=== PATIENT | male | born 1970 | race Hispanic/Latino ===

== ENCOUNTER 2018-12-07 09:00 | Inpatient (IN) | payer SELFPAY ==
[2018-12-07] MEDS ORDERED: Midazolam HCl 2 mg/2 ml Vial ONE (09:34)
[2018-12-07] MEDS ORDERED: Fentanyl 100 MCG/2 ML VIAL ONE (09:34)
[2018-12-07 09:44] LABS: ALT (SGPT) 22 U/L (8-55); AST (SGOT) 19 U/L (5-34); Albumin 3.6 g/dL (3.5-5.0); Alkaline Phosphatase 118 U/L (40-150); Anion Gap 13 mmol/L (10-20); BUN (Urea Nitrogen) 21 mg/dL (8.9-20.6); Bilirubin, Total 0.4 mg/dL (0.2-1.2); CK (CPK) 112 U/L (30-200); Calc. Creatinine Clearance 0 mL/min (70-130); Calcium 8.6 mg/dL (7.8-10.44); Carbon Dioxide 22 mmol/L (22-29); Chloride 103 mmol/L (98-107); Estimated GFR-MDRD 82; Globulin 2.7 g/dL (2.4-3.5); Glucose 280 mg/dL (70-105); Potassium 3.8 mmol/L (3.5-5.1); Protein, Total 6.3 g/dL (6.0-8.3); Sodium 134 mmol/L (136-145)
[2018-12-07 09:45] LABS: #Eosinphils 0.3 thou/uL (0.0-0.7); #Lymphocytes 1.2 thou/uL (1.20-3.40); #Monocytes 0.3 thou/uL (0.11-0.59); #Neutrophils 4.4 thou/uL (1.40-6.50); %Basophils 0.1 % (0.0-1.0); %Eosinophils 4.7 % (0.0-10.0); %Lymphocytes 19.3 % (21.0-51.0); %Monocytes 5.1 % (0.0-10.0); %Neutrophils 70.9 % (42.0-75.0); Hemoglobin 13.3 g/dL (14.0-18.0); Mean Corpuscular HGB CONC 34.4 g/dL (32.0-36.0); Mean Corpuscular Hemoglobin 31.8 pg (27.0-31.0); Mean Corpuscular Volume 92.5 fL (78.0-98.0); Mean Platelet Volume 9.1 fL (7.4-10.4); Platelet Count 134 thou/uL (130-400); RBC Distribution Width 11.7 % (11.5-14.5); Red Blood Cell (RBC) Count 4.18 mill/uL (4.70-6.10); White Blood Cell (WBC) Count 6.2 thou/uL (4.8-10.8)
--- NOTE | 2018-12-07 09:48 | RAD ---
PORTABLE CHEST ONE VIEW: 12/07/2018 9:08 a.m. HISTORY: Chest pain. Myocardial infarction. FINDINGS: The heart size is normal. The lungs are expanded without focal areas of consolidation, pneumothorace s, or pleural effusions. IMPRESSION: No radiographic evidence of acute cardiopulmonary process. POS: [facility]
[2018-12-07 09:51] LABS: Prothrombin Time 12.9 SEC (12.0-14.7)
[2018-12-07] MEDS ORDERED: Heparin 10,000 UNITS/1 ML VIAL ONE (09:56)
[2018-12-07 10:02] LABS: PTT 119.8 SEC (22.9-36.1)
[2018-12-07] MEDS ORDERED: Sodium Chloride 0.9% 200 ML IV PRN (10:11)
[2018-12-07] MEDS ORDERED: Acetaminophen/Codeine 30-300mg Tablet PO PRN ×2 (10:11)
[2018-12-07] MEDS ORDERED: Nitroglycerin 0.4 MG TAB (25 Tab Bottle) SL PRN (10:11)
[2018-12-07] MEDS ORDERED: Aspirin 325 mg Enteric Coated Tablet PO SCH (10:30)
[2018-12-07] MEDS ORDERED: Nitroglycerin 2% Ointment 1 INCH/1 GM Packet TOP SCH ×2 (10:30→21:00)
[2018-12-07] MEDS ORDERED: Heparin 25,000 units/D5W 500 ML IV SCH (10:45)
[2018-12-07] MEDS ORDERED: Diazepam 5 MG TAB PO PRN (10:53)
[2018-12-07] MEDS ORDERED: Communication Order-Pharmacy FS ONE (10:53)
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
[2018-12-07 11:35] LABS: Hemoglobin A1c 13.1 % (4.0-6.0)
[2018-12-07 11:53] LABS: PTT Greater than 250.0 SEC (22.9-36.1)
--- NOTE | 2018-12-07 12:04 | CON ---
DATE OF CONSULTATION: 12/07/2018 HISTORY OF PRESENT ILLNESS: I was called at cardiac cath technician to evaluate the patient undergoing cardiac catheterization by Dr. Segovia. He presented through the Emergency Department with chest pain. The chest pain has been present for a number of days. On presentation, his chest pain had been relieved with nitroglycerin, heparin, and aspirin. He was taken to the cardiac cath technician urgently and underwent cardiac catheterization. He has a PDA branch that has critical stenosis at its origin. He has a long segment LAD with 80% and 90% lesions in it. He also has an OM that has 80+% lesion in it. The ventriculogram shows an ejection fraction of approximately 50%. I have been asked to see him, discuss coronary artery bypass grafting. PAST MEDICAL HISTORY: Diabetes mellitus. PAST SURGICAL HISTORY: None. CURRENT MEDICATIONS: Lantus 30 units subcu at bedtime - he also takes sliding scale regular insulin. He does not check his blood sugars at home. ALLERGIES: NONE. SOCIAL HISTORY: He smokes approximately a pack of cigarettes a day. He works in construction. He is and accompanied by his . REVIEW OF SYSTEMS: A 10-point review of systems is performed is negative except as above. PHYSICAL EXAMINATION: GENERAL: This is a well-developed, well-nourished man, resting comfortably in bed. VITAL SIGNS: His heart rate is 73 and in sinus and blood pressure is 136/67. Height is approximately 6 feet and weight is approximately 170 pounds. HEENT: Sclerae nonicteric. Pupils are equal and round bilaterally. NECK: Supple without carotid bruit. There is no adenopathy. CHEST: Clear bilaterally. HEART: Rhythm is regular without murmur. ABDOMEN: Soft and nontender. EXTREMITIES: No edema. VASCULAR: He has palpable carotid, radial, femoral, and dorsalis pedis pulses bilaterally. VENOUS: There is no venous varicosities or venous stasis changes. LYMPHATICS: No lymphedema or lymphadenopathy. PSYCHIATRIC: Awake and oriented to person, place, and time. He is Kittitian-speaking only, and I have spoken with him, both with my limited Kittitian and also through his , who speaks fluent Thai and Kittitian. LABORATORY DATA: His creatinine is 0.98 and potassium is 3.8. Hemoglobin is 13.3 and platelet count is 134,000. Hemoglobin A1c is pending. Chest x-ray shows well expanded lungs with minimal cardiomegaly. ASSESSMENT AND PLAN: This is a very pleasant 48-year-old gentleman with acute coronary syndrome and severe three-vessel disease on cardiac catheterization. Left ventricular ejection fraction is mildly depressed at 50%. The risks, benefits, and options to coronary artery bypass grafting have been discussed in detail with the patient. He is agreeable to proceed tomorrow with coronary artery bypass grafting. Potential targets included LAD, OM, and PDA branch. Job ID: [id number]
[2018-12-07] MEDS: Sodium Chloride 0.9% 1,000 ML IV SCH ×2 (12:06→20:07)
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
[2018-12-07 14:33] LABS: Troponin I 8.154 ng/mL (< 0.028)
[2018-12-07] MEDS ORDERED: Iopamidol 370 76% 50 ML VIAL FS ONE (14:58)
[2018-12-07] MEDS ORDERED: Iopamidol 370 76% 100 ML VIAL ONE (14:58)
[2018-12-07] MEDS ORDERED: Dextrose 5% in Water 1,000 ML IV PRN (15:57)
[2018-12-07] MEDS ORDERED: Dextrose 50% Abboject 50 ML SYRINGE SLOW IVP PRN (15:57)
[2018-12-07] MEDS: HumaLOG 300 UNITS/3 ML VIAL SC PRN (17:01)
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
[2018-12-07] MEDS: Metoprolol Tartrate 25 MG TAB PO SCH (20:07)
[2018-12-07] MEDS ORDERED: Insulin Glargine 15 UNITS in Pre-Filled Syringe 1 EACH SC SCH (21:00)
[2018-12-07] MEDS: Heparin 10,000 UNITS/ 10 ML VIAL SLOW IVP SCH (21:02)
[2018-12-07 21:10] LABS: Troponin I 20.829 ng/mL (< 0.028)
[2018-12-08 02:44] LABS: Critical Call Chem Troponin I RESULT DECREASING; Troponin I 15.863 ng/mL (< 0.028)
[2018-12-08 03:02] LABS: #Basophils 0.1 thou/uL (0.0-0.2); #Eosinphils 0.3 thou/uL (0.0-0.7); #Lymphocytes 1.7 thou/uL (1.20-3.40); #Monocytes 0.4 thou/uL (0.11-0.59); #Neutrophils 4.9 thou/uL (1.40-6.50); %Basophils 0.7 % (0.0-1.0); %Eosinophils 4.6 % (0.0-10.0); %Lymphocytes 22.4 % (21.0-51.0); %Monocytes 5.8 % (0.0-10.0); %Neutrophils 66.5 % (42.0-75.0); Hemoglobin 11.9 g/dL (14.0-18.0); Mean Corpuscular HGB CONC 35.9 g/dL (32.0-36.0); Mean Corpuscular Hemoglobin 32.7 pg (27.0-31.0); Mean Platelet Volume 8.7 fL (7.4-10.4); Platelet Count 121 thou/uL (130-400); RBC Distribution Width 11.6 % (11.5-14.5); Red Blood Cell (RBC) Count 3.65 mill/uL (4.70-6.10); White Blood Cell (WBC) Count 7.4 thou/uL (4.8-10.8)
[2018-12-08 03:28] LABS: Anion Gap 10 mmol/L (10-20); BUN (Urea Nitrogen) 10 mg/dL (8.9-20.6); Calc. Creatinine Clearance 113 mL/min (70-130); Calcium 8.2 mg/dL (7.8-10.44); Carbon Dioxide 22 mmol/L (22-29); Cardiac Risk 4.1 (Less than 4.5); Chloride 105 mmol/L (98-107); Cholesterol 146 mg/dl (< 200 Desired); Estimated GFR-MDRD Greater than 90; Glucose 223 mg/dL (70-105); HDL Cholesterol 36 mg/dL (>60 Neg Risk); LDL Cholesterol, Calculated 96 mg/dL; Sodium 133 mmol/L (136-145); Triglycerides 72 mg/dL (Less than 150)
[2018-12-08] MEDS: Heparin 10,000 UNITS/ 10 ML VIAL SLOW IVP SCH (03:52)
[2018-12-08] MEDS: Sodium Chloride 0.9% 1,000 ML IV SCH (03:56)
[2018-12-08] MEDS: HumaLOG 300 UNITS/3 ML VIAL SC PRN (05:31)
[2018-12-08] MEDS: Metoprolol Tartrate 25 MG TAB PO SCH (05:31)
[2018-12-08] MEDS ORDERED: CEFAZOLIN 2 GM in Premix Bag 1 BAG IVPB SCH (06:00)
[2018-12-08] MEDS ORDERED: HumaLOG 300 UNITS/3 ML VIAL SC PRN (07:19)
[2018-12-08] MEDS ORDERED: Aspirin 325 mg Enteric Coated Tablet PO SCH (09:00)
[2018-12-08] MEDS ORDERED: Nicotine 21 MG PATCH TD SCH (09:00)
[2018-12-08] MEDS ORDERED: Dexamethasone 4 mg/ml Vial ONE (09:50)
[2018-12-08] MEDS ORDERED: Bupivacaine HCl 0.5%/Epinephrine 1:200,000/PF 30 ml Vial ONE (09:50)
[2018-12-08] MEDS ORDERED: Albumin 5% 500 ML ONE (09:51)
[2018-12-08] MEDS ORDERED: Dextrose 50% Abboject 50 ML SYRINGE ONE (10:05)
[2018-12-08] MEDS ORDERED: CEFAZOLIN 1 GM VIAL SLOW IVP SCH (11:00)
[2018-12-08] MEDS ORDERED: Heparin 10,000 UNITS/1 ML VIAL 30,000 UNITS, Admixture Fee 1 EACH in Sodium Chloride 0.... IVPB SCH (11:00)
--- NOTE | 2018-12-08 11:41 | PRG ---
DATE OF SERVICE: 12/08/2018 SERVICE: Pulmonary Medicine. INTERVAL HISTORY: The patient is doing fine from Respiratory standpoint. Breathing comfortably. Denies any current chest pain, shortness of breath, nausea, or vomiting. He is breathing comfortably. Overnight, there were no events. He is going down for coronary artery bypass graft today. PHYSICAL EXAMINATION: VITAL SIGNS: Afebrile, pulse 72, blood pressure 106/64, respirations 16, saturation 97% on room air. GENERAL: The patient is awake and alert, in no apparent distress. LUNGS: Excellent air entry. No prolonged expiratory phase, wheezing, or crackles are appreciated. HEART: Normal rate and regular. ABDOMEN: Soft, nontender, nondistended. Bowel sounds are positive. MUSCULOSKELETAL: No cyanosis or clubbing. No pitting in the bilateral lower extremities. NEUROLOGIC: Grossly nonfocal. LABORATORY DATA: Hemoglobin 11.9. CBC is otherwise unremarkable. PTT is 62.5 and within our range. Blood sugar dropped to 57, but is now up-trending. Basic metabolic profile is otherwise unremarkable. Troponin has peaked at 20 and is now downtrending to 15. ASSESSMENT: 1. Acute ST-elevation myocardial infarction. 2. Coronary artery disease, three-vessel. 3. Type 2 diabetes mellitus. DISCUSSION AND PLAN: The patient is going for coronary artery bypass graft today. Pulmonary will continue to follow along in this location. From a purely Respiratory standpoint, he is certainly optimized for proceeding with the procedure. Job ID: [id number]
[2018-12-08] MEDS ORDERED: Midazolam HCl 2 mg/2 ml Vial ONE (12:11)
[2018-12-08] MEDS ORDERED: Nitroglycerin 50 MG/250 ML BOT 250 ML ONE (12:11)
[2018-12-08] MEDS ORDERED: Fentanyl 250 MCG/5 ML VIAL ONE (12:11)
[2018-12-08] MEDS ORDERED: Norepinephrine 4 MG/4 ML VIAL ONE (12:12)
[2018-12-08] MEDS ORDERED: Mannitol 12.5 GM/50 ML ONE (12:51)
[2018-12-08] MEDS ORDERED: Protamine Sulfate 250 MG/25 ML VIAL ONE (12:51)
[2018-12-08] MEDS ORDERED: Magnesium 5 GM/10 ML VIAL ONE (12:51)
[2018-12-08] MEDS ORDERED: Cardioplegic Soln 1,000 ML BAG ONE (12:51)
[2018-12-08] MEDS ORDERED: Rocuronium Bromide 10 MG/ML (10ML VIAL) ONE (12:51)
[2018-12-08] MEDS ORDERED: Papaverine 60 MG/2 ML VIAL ONE (12:51)
[2018-12-08] MEDS ORDERED: Thrombin 5000 UNITS/5 ML VIAL ONE (12:51)
[2018-12-08] MEDS ORDERED: Calcium Chloride 1 GM/10 ML Abboject SYRINGE ONE (12:51)
[2018-12-08] MEDS ORDERED: Succinylcholine Chloride 20 MG/ML 10 ml SYRINGE FS ONE (12:51)
[2018-12-08] MEDS ORDERED: Ondansetron PF 4 MG/2 ML Vial ONE (12:51)
[2018-12-08] MEDS ORDERED: Lidocaine 2% PF 100 mg/5 ml Syringe ONE (12:51)
[2018-12-08] MEDS ORDERED: Aminocaproic Acid 5 GM/20 ML VIAL ONE (12:51)
[2018-12-08] MEDS ORDERED: Vecuronium 10 MG VIAL ONE (12:51)
[2018-12-08] MEDS ORDERED: PROPOFOL 200 MG/20 ML VIAL ONE (12:51)
[2018-12-08] MEDS ORDERED: Heparin 30,000 units/30 ml VIAL ONE (12:51)
[2018-12-08] MEDS ORDERED: Sodium Bicarb 50 MEQ/50 ML VIAL ONE (12:51)
[2018-12-08] MEDS ORDERED: Heparin 5,000 UNITS/ML VIAL ONE (12:51)
[2018-12-08] MEDS ORDERED: Potassium Chloride 60 MEQ/30 ML VIAL ONE (12:51)
[2018-12-08] MEDS ORDERED: ceFAZolin Sodium (SDC) 2 GM/100 ML BAG ONE (12:57)
[2018-12-08] MEDS ORDERED: Insulin Regular 300 UNITS/3 ML VIAL ONE (14:25)
[2018-12-08] MEDS ORDERED: Phenylephrine HCL 10 MG/ML VIAL ONE (15:00)
[2018-12-08] MEDS ORDERED: Midazolam HCl 5 mg/5 ml Vial ONE (15:07)
[2018-12-08] MEDS ORDERED: Prevnar 13-Val Conj/PF 0.5 ML SYRINGE IM ONE (16:00)
[2018-12-08] MEDS ORDERED: Acetaminophen 325 MG TAB PO PRN (16:45)
[2018-12-08] MEDS ORDERED: Potassium Chloride 20 MEQ/100 ML PREMIX BAG IVPB PRN (16:45)
[2018-12-08] MEDS ORDERED: Guaifenesin DM 100-10/5 ML UDCUP PO PRN (16:45)
[2018-12-08] MEDS ORDERED: Morphine 2 MG/ML SYRINGE SLOW IVP PRN (16:45)
[2018-12-08] MEDS ORDERED: Mag-Al 1200 mg/1200 mg/30 ML UDCUP PO PRN (16:45)
[2018-12-08] MEDS ORDERED: Nitroglycerin 50 MG/250 ML BOT 250 ML IVPB PRN (16:45)
[2018-12-08] MEDS ORDERED: Fentanyl 100 MCG/2 ML VIAL SLOW IVP PRN ×2 (16:45)
[2018-12-08] MEDS ORDERED: Magnesium 2 GM/50 ML 2 GM in Premix Bag 1 BAG IVPB SCH (16:45)
[2018-12-08] MEDS ORDERED: D5 1/2 NS w/20 mEq KCL 1,000 ML IV SCH (16:45)
[2018-12-08] MEDS ORDERED: Bisacodyl 5 MG TAB PO PRN (16:45)
[2018-12-08] MEDS ORDERED: Hetastarch 6% 500 ML 500 ML IVPB PRN (16:45)
[2018-12-08] MEDS ORDERED: Phenylephrine 10 MG/NS 250 ML 250 ML IVPB PRN (16:45)
[2018-12-08] MEDS ORDERED: hydrALAZINE 20 MG/ML VIAL SLOW IVP PRN (16:45)
[2018-12-08] MEDS ORDERED: Bisacodyl 10 MG SUPP PR PRN (16:45)
[2018-12-08] MEDS ORDERED: HYDROcodone/Acetaminophen 5/325 mg Tablet PO PRN (16:45)
[2018-12-08] MEDS ORDERED: Post-Op Insulin Drip Protocol IVPB ONE (16:45)
[2018-12-08] MEDS ORDERED: HUMULIN R 100 UNITS in Sodium Chloride 0.9% 100 ML IVPB SCH (17:03)
[2018-12-08] MEDS ORDERED: Dextrose 5% in Water 1,000 ML IV PRN (17:03)
[2018-12-08] MEDS ORDERED: Dextrose 50% Abboject 50 ML SYRINGE SLOW IVP PRN (17:03)
[2018-12-08] MEDS ORDERED: Insulin Regular 300 UNITS/3 ML VIAL SC PRN (17:03)
--- NOTE | 2018-12-08 17:09 | RAD ---
Frontal radiograph chest: 12/08/2018 COMPARISON: 12/07/2018 HISTORY: Status post open heart surgery FINDINGS: There is an endotracheal tube projecting over the tracheal air column just below the level of the clavicular heads. There is a right subclavian central venous catheter with the distal tip overlying the region of the p roximal right atrium. Midline sternotomy wires are present. Postsurgical drainage catheters overlie the mediastinum and left hilar region. There is small volume pneumomediastinum on the left. Supine imaging is provided, limiting assessment for pneumothorax and pleural fluid. No focal consolidation or evidence of pulmonary edema. There are postoperative clips projecting over the medial aspect of the left upper quadrant of the abd omen IMPRESSION: Postoperative changes as detailed above. Short-term follow-up imaging advised.
[2018-12-08 17:12] LABS: #Eosinphils 0.2 thou/uL (0.0-0.7); #Lymphocytes 1.3 thou/uL (1.20-3.40); #Monocytes 0.3 thou/uL (0.11-0.59); #Neutrophils 9.6 thou/uL (1.40-6.50); %Basophils 0.3 % (0.0-1.0); %Eosinophils 1.7 % (0.0-10.0); %Lymphocytes 11.7 % (21.0-51.0); %Monocytes 2.8 % (0.0-10.0); %Neutrophils 83.5 % (42.0-75.0); Hemoglobin 13.1 g/dL (14.0-18.0); Mean Corpuscular HGB CONC 33.7 g/dL (32.0-36.0); Mean Corpuscular Hemoglobin 30.7 pg (27.0-31.0); Mean Corpuscular Volume 91.1 fL (78.0-98.0); Mean Platelet Volume 8.9 fL (7.4-10.4); Platelet Count 108 thou/uL (130-400); RBC Distribution Width 11.7 % (11.5-14.5); Red Blood Cell (RBC) Count 4.28 mill/uL (4.70-6.10); White Blood Cell (WBC) Count 11.5 thou/uL (4.8-10.8)
[2018-12-08 17:21] LABS: INR-International Normal Ratio 1.1; PTT 32.5 SEC (22.9-36.1); Prothrombin Time 14.2 SEC (12.0-14.7)
[2018-12-08] MEDS: Ondansetron PF 4 MG/2 ML Vial IVP PRN (17:25)
[2018-12-08] MEDS: Ketorolac Tromethamine 30 MG/ML VIAL IVP SCH ×2 (17:25→23:56)
[2018-12-08 17:26] LABS: Actual Bicarbonate (HCO3a) 20.6 mEq/L (22-28); CO2 Tension 32.6 mmHg (35.0-45.0); Hemoglobin (Hb) 13.4 g/dL (14.0-18.0); O2 Tension (PaO2) 150.5 mmHg (80.0-100.0); Potassium - ABG Lab 3.46 mmol/L (3.70-5.30); pH, Arterial 7.42 (7.35-7.45)
[2018-12-08 17:27] LABS: Puncture Site ALINE
[2018-12-08 17:30] LABS: Anion Gap 12 mmol/L (10-20); BUN (Urea Nitrogen) 9 mg/dL (8.9-20.6); Calc. Creatinine Clearance 115 mL/min (70-130); Calcium 7.7 mg/dL (7.8-10.44); Carbon Dioxide 18 mmol/L (22-29); Chloride 109 mmol/L (98-107); Estimated GFR-MDRD Greater than 90; Glucose 116 mg/dL (70-105); Potassium 3.6 mmol/L (3.5-5.1); Sodium 135 mmol/L (136-145)
[2018-12-08] MEDS: Potassium Chloride 20 MEQ in Premix Bag 1 BAG IVPB PRN (17:40)
--- NOTE | 2018-12-08 18:09 | OP ---
DATE OF PROCEDURE: 12/08/2018 PREOPERATIVE DIAGNOSES: Coronary artery disease/status post non-ST elevation myocardial infarction/uncontrolled diabetes mellitus. POSTOPERATIVE DIAGNOSES: Coronary artery disease/status post non-ST elevation myocardial infarction/uncontrolled diabetes mellitus. PROCEDURES PERFORMED: 1. Coronary artery bypass grafting x3. 2. Left internal mammary artery to 2.0 mm left anterior descending artery-good conduit target. 3. Reverse saphenous vein to 1.5 mm posterior descending artery-good conduit target. 4. Reverse saphenous vein, 2.0 mm obtuse margin-good conduit target. SIDEHAND: Karlo Rose MD ANESTHESIA: General endotracheal-Dr. Clarence Swenson and Dr. Janene Do. PUMP TIME: 52 minutes. CROSS-CLAMP TIME: 32 minutes. LOW CORE TEMPERATURE: 34-degree Celsius. MOBILITY ARCHITECT MANAGER: Elaine Stein. DRAINS: 24-Niuean chest tubes x2. DRIPS: None. TRANSFUSIONS: None. DESCRIPTION OF PROCEDURE: After consent was obtained, the patient was brought to the operating room, placed in supine position on the operating room table. Appropriate central line and monitors were placed and general endotracheal anesthesia was induced. Chest and legs were prepped and draped in usual sterile fashion. Greater saphenous vein was harvested from the left lower extremity utilizing an endoscopic technique. Wound was closed in layers. Median sternotomy was performed. Left internal mammary artery was harvested as a pedicle graft. The patient was systemically heparinized. Distal pedicle was divided and infused with papaverine. Thymic fat and pericardium were divided with electrocautery. Pericardial stay sutures were placed. Aortic and atrial cannulation were performed. After adequate heparinization, retrograde prime was performed. The patient was placed on cardiopulmonary bypass. Distal targets were marked. Aortic cross-clamp was applied. The antegrade sanguineous cardioplegic arrest was obtained. 1 L of antegrade [place] cardioplegia was given. Topical cold solution was used. Reverse saphenous vein was anastomosed to the PDA in end-to-side fashion running 7-0 Prolene suture. Anastomosis was tested and was hemostatic. Reverse saphenous vein was anastomosed to the OM in end-to-side fashion with running 7-0 Prolene suture. Anastomosis was tested and was hemostatic. Mammary artery was brought through a window in the pericardium and anastomosed to the LAD in an end-to-side fashion with running 7-0 Prolene suture. On release of mammary clamps, there was good hooding of anastomosis and good distal flow. Pedicle was secured with interrupted 6-0 Prolene suture. Cross-clamp was removed and partial occluding clamp placed. Saphenous veins were anastomosed to individual punch sites on the aorta with running 6-0 Prolene suture. Partial-occluding clamp was removed and graft deaired. Anastomoses were inspected for hemostasis, which was good. The patient was warmed and weaned from cardiopulmonary bypass. After resumption of sinus rhythm, good hemodynamics, temperature greater than 36.5, bypass was discontinued. Transfusion was given. Protamine was administered. Decannulation was performed, and pursestring suture was secured. 24-Niuean chest tubes x2 were placed in the mediastinum and secured with silk suture. After adequate hemostasis had been obtained in the mediastinum, sternum was treated with vancomycin paste and closed with #7 wire. Sternum was treated with platelet-rich plasma and wires were twisted and buried. Wounds were irrigated with platelet poor plasma and closed in multiple layers. Dermabond applied to the skin. The patient tolerated the procedure well, was transferred to the intensive care unit in stable, but critical condition. Needle, sponge, and instrument counts were all reported as correct at the end of the procedure. Job ID: [id number]
[2018-12-08 20:12] LABS: Actual Bicarbonate (HCO3a) 16.7 mEq/L (22-28); Base Excess (BEa) -6.3 mEq/L (-2.0 to +3.0); CO2 Tension 26.7 mmHg (35.0-45.0); Calcium, Ionized 1.11 mmol/L (1.12-1.30); Carboxyhemoglobin (COHb) 0.8 gm% (0.0-3.0); Hemoglobin (Hb) 12.7 g/dL (14.0-18.0); O2 Tension (PaO2) 177.1 mmHg (80.0-100.0); Potassium - ABG Lab 3.96 mmol/L (3.70-5.30); pH, Arterial 7.42 (7.35-7.45)
[2018-12-08] MEDS: Famotidine/PF 20 mg/2ml Vial SLOW IVP SCH (21:06)
[2018-12-08] MEDS: CEFAZOLIN 2 GM in Premix Bag 1 BAG IVPB SCH (21:06)
[2018-12-08 21:22] LABS: ALV-art Gradient 74.725 (0-20)
--- NOTE | 2018-12-08 22:06 | PDOC.HOSPP ---
- Subjective Subjective: intubated. Awake. Slightly sedated. - Objective Vital Signs & Weight: Vital Signs (12 hours) Temp Pulse Resp BP Pulse Ox 12/08/18 20:20 98 12/08/18 20:00 25 H 12/08/18 19:55 85 17 99 12/08/18 18:00 96.8 F L 17 12/08/18 17:11 28 H 100 12/08/18 17:00 96.1 F L 12/08/18 16:46 91 101/52 L 12/08/18 12:00 98.9 F Weight Admit Weight 155 lb Weight 155 lb 13.869 oz Most Recent Monitor Data Heart Rate from ECG 86 NIBP 99/62 NIBP BP-Mean 74 Respiration from ECG 19 SpO2 98 I&O: 12/07/18 12/08/18 12/09/18 06:59 06:59 06:59 Intake Total 3692 750 Output Total 1750 1420 Balance 1942 -670 Result Diagrams: 12/08/18 17:04 12/08/18 17:04 Additional Labs: Accuchecks 12/08/18 12/08/18 12/08/18 20:47 17:04 15:52 POC Glucose 250 H 113 H 102 12/08/18 12/08/18 12/08/18 15:19 14:52 14:18 POC Glucose 130 H 145 H 145 H 12/08/18 12/08/18 12/08/18 13:26 11:58 10:23 POC Glucose 121 H 97 69 L 12/08/18 12/08/18 12/08/18 10:02 07:13 05:33 POC Glucose 57 L* 158 H 310 H ROS - Medication Medications: Active Medications Generic Name Dose Route Start Last Admin Trade Name Freq PRN Reason Stop Dose Admin Albumin Human 12.5 gm 12/08/18 16:45 12/08/18 17:54 Albumin 5% IVPB 12/09/18 16:46 12.5 gm Q6H PRN Administration To Maintain SBP> 90 mmHG Albuterol/Ipratropium 3 ml 12/08/18 19:00 12/08/18 19:55 Duoneb NEB 3 ml [id number] VENKAT Administration Famotidine 20 mg 12/08/18 21:00 12/08/18 21:06 Pepcid SLOW IVP 20 mg Q12HR VENKAT Administration Cefazolin Sodium/Dextrose 2 gm 50 mls @ 100 mls/hr 12/08/18 21:00 12/08/18 21 :06 / Device IVPB 12/09/18 13:29 50 mls 0500,1300,2100 VENKAT Administration Potassium Chloride/Dextrose/Sod Cl 1,000 mls @ 40 mls/hr 12/08/18 16:45 12/08 17:32 D5 1/2 Ns W/20 Meq Kcl IV 1,000 mls .Q24H VENKAT Administration Hetastarch/Sodium Chloride 500 mls @ 0 mls/hr 12/08/18 16:45 12/08/18 20:59 Hespan IVPB 12/09/18 16:26 500 mls PRN PRN Administration To Maintain SBP > 90mmHg As Directed Insulin Human Regular 100 101 mls @ 0 mls/hr 12/08/18 17:03 12/08/18 21:06 units/ Sodium Chloride IVPB 101 mls INF VENKAT Administration Protocol As Directed Potassium Chloride 20 meq/ 100 mls @ 50 mls/hr 12/08/18 17:09 12/08/18 17:40 Device IVPB 100 mls PRN PRN Administration K </= 4.0 Ketorolac Tromethamine 30 mg 12/08/18 18:00 12/08/18 17:25 Toradol IVP 12/11/18 18:01 30 mg Q6HR VENKAT Administration Ondansetron HCl 4 mg 12/08/18 16:45 12/08/18 17:25 Zofran IVP 4 mg Q6H PRN Administration Nausea/Vomiting Sodium Chloride 10 ml 12/08/18 21:00 12/08/18 21:10 Flush - Normal Saline IVF 10 ml Q12HR VENKAT Administration - Exam General - other findings: Intubated Heart: RRR, no murmur, no gallops, no rubs, normal peripheral pulses Respiratory: CTAB, no wheezes, no rales, no ronchi, normal chest expansion, no tachypnea, normal percussion Gastrointestinal: soft, non-tender, non-distended, normal bowel sounds, no palpable masses, no hepatomegaly, no splenomegaly, no bruit Skin: normal turgor, no lesions, no rashes Neurological: CN's grossly intact, normal sensation to touch, no weakness, no focal deficits, no new deficit Hosp A/P (1) CAD (coronary artery disease) Code(s): I25.10 - ATHSCL HEART DISEASE OF [place] CORONARY ARTERY W/O ANG PCTRS Status: Acute (2) S/P CABG (coronary artery bypass graft) Code(s): Z95.1 - PRESENCE OF AORTOCORONARY BYPASS GRAFT Status: Acute (3) Diabetes mellitus Code(s): E11.9 - TYPE 2 DIABETES MELLITUS WITHOUT COMPLICATIONS Status: Acute - Plan Post-op. Intubated. Doing well. He will likely be extubated this afternoon. Continue ASA.
[2018-12-08 23:02] LABS: Hemoglobin 10.8 g/dL (14.0-18.0)
[2018-12-08 23:14] LABS: Potassium 3.9 mmol/L (3.5-5.1)
[2018-12-09] MEDS: Potassium Chloride 20 MEQ in Premix Bag 1 BAG IVPB PRN (00:13)
[2018-12-09 04:16] LABS: #Lymphocytes 0.9 thou/uL (1.20-3.40); #Monocytes 0.8 thou/uL (0.11-0.59); #Neutrophils 7.2 thou/uL (1.40-6.50); %Eosinophils 0.1 % (0.0-10.0); %Monocytes 9.3 % (0.0-10.0); %Neutrophils 80.6 % (42.0-75.0); Hemoglobin 10.8 g/dL (14.0-18.0); Mean Corpuscular HGB CONC 34.6 g/dL (32.0-36.0); Mean Corpuscular Hemoglobin 32.1 pg (27.0-31.0); Mean Corpuscular Volume 92.8 fL (78.0-98.0); Mean Platelet Volume 9.2 fL (7.4-10.4); Platelet Count 90 thou/uL (130-400); RBC Distribution Width 11.8 % (11.5-14.5); Red Blood Cell (RBC) Count 3.36 mill/uL (4.70-6.10); White Blood Cell (WBC) Count 8.9 thou/uL (4.8-10.8)
[2018-12-09 04:31] LABS: Anion Gap 9 mmol/L (10-20); BUN (Urea Nitrogen) 14 mg/dL (8.9-20.6); Calc. Creatinine Clearance 117 mL/min (70-130); Calcium 7.8 mg/dL (7.8-10.44); Carbon Dioxide 21 mmol/L (22-29); Chloride 111 mmol/L (98-107); Estimated GFR-MDRD Greater than 90; Glucose 88 mg/dL (70-105); Potassium 4.4 mmol/L (3.5-5.1); Sodium 137 mmol/L (136-145)
[2018-12-09] MEDS: CEFAZOLIN 2 GM in Premix Bag 1 BAG IVPB SCH ×2 (05:17→12:39)
[2018-12-09] MEDS: Ondansetron PF 4 MG/2 ML Vial IVP PRN (05:17)
[2018-12-09] MEDS: Ketorolac Tromethamine 30 MG/ML VIAL IVP SCH ×4 (06:17→23:31)
[2018-12-09] MEDS ORDERED: Dextrose 5% in Water 1,000 ML IV PRN (07:17)
[2018-12-09] MEDS ORDERED: Dextrose 50% Abboject 50 ML SYRINGE SLOW IVP PRN (07:17)
[2018-12-09] MEDS ORDERED: Insulin Glargine 14 UNITS in Pre-Filled Syringe 1 EACH SC SCH (08:15)
--- NOTE | 2018-12-09 08:21 | RAD ---
XR Chest 1 View Portable History: Post open heart surgery Comparison: Radiograph prior day Findings: The mediastinum is improving. Patient has Gated. Central venous catheter is similar. No pneumothorax. Atelectatic changes in the lung bases. Mediastinal drains are similar. Impression: Interval extubation and improving pneumomediastinum.
[2018-12-09] MEDS: Aspirin 325 MG TAB PO SCH (09:03)
[2018-12-09] MEDS: Magnesium 2 GM/50 ML 2 GM in Premix Bag 1 BAG IVPB SCH (09:04)
[2018-12-09] MEDS: Famotidine/PF 20 mg/2ml Vial SLOW IVP SCH ×2 (09:04→20:25)
[2018-12-09 10:12] LABS: Analyzer IN Cardio OR; Base Excess (BEa) -4.6 mEq/L (-2.0 to +3.0); Calcium, Ionized 1.04 mmol/L (1.12-1.30); Carboxyhemoglobin (COHb) 0.2 gm% (0.0-3.0); Hemoglobin (Hb) 10.7 g/dL (14.0-18.0); O2 Tension (PaO2) 424.3 mmHg (80.0-100.0); Potassium - ABG Lab 3.89 mmol/L (3.70-5.30); pH, Arterial 7.46 (7.35-7.45)
[2018-12-09 10:12] LABS: Analyzer IN Cardio OR; Base Excess (BEa) -1.2 mEq/L (-2.0 to +3.0); CO2 Tension 32.3 mmHg (35.0-45.0); Calcium, Ionized 1.03 mmol/L (1.12-1.30); Carboxyhemoglobin (COHb) 0.5 gm% (0.0-3.0); Hemoglobin (Hb) 11.8 g/dL (14.0-18.0); Potassium - ABG Lab 4.15 mmol/L (3.70-5.30); pH, Arterial 7.45 (7.35-7.45)
[2018-12-09 10:12] LABS: Actual Bicarbonate (HCO3a) 22.7 mEq/L (22-28); Analyzer IN Cardio OR; Base Excess (BEa) 0.1 mEq/L (-2.0 to +3.0); CO2 Tension 29.8 mmHg (35.0-45.0); Calcium, Ionized 1.01 mmol/L (1.12-1.30); Carboxyhemoglobin (COHb) 0.3 gm% (0.0-3.0); Hemoglobin (Hb) 10.1 g/dL (14.0-18.0); O2 Tension (PaO2) 479.2 mmHg (80.0-100.0); Potassium - ABG Lab 4.86 mmol/L (3.70-5.30)
[2018-12-09 10:13] LABS: Actual Bicarbonate (HCO3a) 23.8 mEq/L (22-28); Analyzer IN Cardio OR; Base Excess (BEa) -0.7 mEq/L (-2.0 to +3.0); CO2 Tension 38.7 mmHg (35.0-45.0); Calcium, Ionized 1.01 mmol/L (1.12-1.30); Carboxyhemoglobin (COHb) 0.2 gm% (0.0-3.0); Hemoglobin (Hb) 9.2 g/dL (14.0-18.0); O2 Tension (PaO2) 412.7 mmHg (80.0-100.0); pH, Arterial 7.41 (7.35-7.45)
[2018-12-09 10:13] LABS: Actual Bicarbonate (HCO3a) 22.3 mEq/L (22-28); Analyzer IN Cardio OR; Base Excess (BEa) -1.2 mEq/L (-2.0 to +3.0); CO2 Tension 32.8 mmHg (35.0-45.0); Calcium, Ionized 1.01 mmol/L (1.12-1.30); Carboxyhemoglobin (COHb) 0.3 gm% (0.0-3.0); Hemoglobin (Hb) 9.6 g/dL (14.0-18.0); Potassium - ABG Lab 3.71 mmol/L (3.70-5.30); pH, Arterial 7.45 (7.35-7.45)
[2018-12-09 10:14] LABS: CO2 Tension 25.9 mmHg (35.0-45.0); Puncture Site ALINE
[2018-12-09 10:15] LABS: Puncture Site ALINE
[2018-12-09 10:16] LABS: O2 Tension (PaO2) 552.3 mmHg (80.0-100.0); Puncture Site ALINE
[2018-12-09 10:16] LABS: Puncture Site ALINE
[2018-12-09 10:16] LABS: Puncture Site ALINE
[2018-12-09] MEDS: HumaLOG 300 UNITS/3 ML VIAL SC PRN ×3 (11:34→20:23)
--- NOTE | 2018-12-09 12:33 | PDOC.HOSPP ---
- Subjective Encounter Date: 12/09/18 Encounter Time: 11:30 Subjective: Patient seen and examined in ICU. Extubated, fairly comfortable. No nausea or vomiting, no SOB. Family at bedside. - Objective Vital Signs & Weight: Vital Signs (12 hours) Temp Pulse Resp Pulse Ox 12/09/18 08:00 99 12/09/18 07:39 99 12/09/18 07:37 95 12 99 12/09/18 07:00 98.9 F Weight Admit Weight 155 lb Weight 156 lb 11.979 oz Most Recent Monitor Data Heart Rate from ECG 95 NIBP 112/68 NIBP BP-Mean 82 Respiration from ECG 18 SpO2 97 I&O: 12/08/18 12/09/18 12/10/18 06:59 06:59 06:59 Intake Total 3692 2131.9 183.9 Output Total 1750 2105 320 Balance 1942 26.9 -136.1 Result Diagrams: 12/09/18 03:45 12/09/18 03:45 Additional Labs: Accuchecks 12/09/18 12/09/18 12/09/18 10:40 07:17 06:11 POC Glucose 156 H 111 H 128 H 12/09/18 12/09/18 12/09/18 05:16 03:55 03:02 POC Glucose 132 H 86 70 12/09/18 12/09/18 12/09/18 02:04 00:58 00:02 POC Glucose 99 116 H 191 H 12/08/18 12/08/18 12/08/18 23:07 22:10 20:47 POC Glucose 216 H 254 H 250 H 12/08/18 12/08/18 12/08/18 17:04 15:52 15:19 POC Glucose 113 H 102 130 H 12/08/18 12/08/18 12/08/18 14:52 14:18 13:26 POC Glucose 145 H 145 H 121 H ROS - Medication Medications: Active Medications Generic Name Dose Route Start Last Admin Trade Name Freq PRN Reason Stop Dose Admin Albumin Human 12.5 gm 12/08/18 16:45 12/09/18 01:32 Albumin 5% IVPB 12/09/18 16:46 12.5 gm Q6H PRN Administration To Maintain SBP> 90 mmHG Albuterol/Ipratropium 3 ml 12/08/18 19:00 12/09/18 07:37 Duoneb NEB 3 ml [id number] VENKAT Administration Aspirin 325 mg 12/09/18 09:00 12/09/18 09:03 Aspirin PO 325 mg DAILY VENKAT Administration Famotidine 20 mg 12/08/18 21:00 12/09/18 09:04 Pepcid SLOW IVP 20 mg Q12HR VENKAT Administration Fentanyl 25 mcg 12/08/18 16:45 12/09/18 03:57 Sublimaze SLOW IVP 12/10/18 16:26 25 mcg Q2H PRN Administration Moderate Pain (4-6) Cefazolin Sodium/Dextrose 2 gm 50 mls @ 100 mls/hr 12/08/18 21:00 12/09/18 05 :17 / Device IVPB 12/09/18 13:29 50 mls 0500,1300,2100 VENKAT Administration Hetastarch/Sodium Chloride 500 mls @ 0 mls/hr 12/08/18 16:45 12/08/18 20:59 Hespan IVPB 12/09/18 16:26 500 mls PRN PRN Administration To Maintain SBP > 90mmHg As Directed Magnesium Sulfate 2 gm/ Device 50 mls @ 50 mls/hr 12/09/18 09:00 12/09/18 09: 04 IVPB 12/10/18 09:59 50 mls QAM VENKAT Administration Potassium Chloride 20 meq/ 100 mls @ 50 mls/hr 12/08/18 17:09 12/09/18 00:13 Device IVPB 100 mls PRN PRN Administration K </= 4.0 Insulin Human Lispro 0 units 12/09/18 07:17 12/09/18 11:34 Humalog SC 2 unit .MILD SLIDING SCALE PRN Administration Mild Correctional Scale Ketorolac Tromethamine 30 mg 12/08/18 18:00 12/09/18 11:33 Toradol IVP 12/11/18 18:01 30 mg Q6HR VENKAT Administration Ondansetron HCl 4 mg 12/08/18 16:45 12/09/18 05:17 Zofran IVP 4 mg Q6H PRN Administration Nausea/Vomiting Sodium Chloride 10 ml 12/08/18 21:00 12/09/18 09:05 Flush - Normal Saline IVF 10 ml Q12HR VENKAT Administration - Exam General - other findings: Fairly comfortable Eye: anicteric sclera ENT: moist mucosa Neck: supple, no lymphadenopathy Heart: RRR Respiratory - other findings: Slight basilar crackles Gastrointestinal: soft, non-tender, non-distended Extremities: no edema Neurological: no focal deficits Psychiatric: A&O x 3 Hosp A/P (1) CAD (coronary artery disease) Code(s): I25.10 - ATHSCL HEART DISEASE OF [place] CORONARY ARTERY W/O ANG PCTRS Status: Acute (2) Diabetes mellitus Code(s): E11.9 - TYPE 2 DIABETES MELLITUS WITHOUT COMPLICATIONS Status: Acute (3) S/P CABG (coronary artery bypass graft) Code(s): Z95.1 - PRESENCE OF AORTOCORONARY BYPASS GRAFT Status: Acute (4) Postoperative anemia due to acute blood loss Code(s): D62 - ACUTE POSTHEMORRHAGIC ANEMIA Status: Acute (5) Tobacco dependence Code(s): F17.200 - NICOTINE DEPENDENCE, UNSPECIFIED, UNCOMPLICATED Status: Acute - Plan 1. Cards - POD #1 s/p CABG; ASA/statin, beta marj as able. Ambulate/OOB/ mobilize 2. Endo - DM type 1 - 15u long acting ordered/ss noted, follow 3. Tobacco cessation Generally doing well with postop recovery
--- NOTE | 2018-12-09 16:54 | PRG ---
DATE OF SERVICE: 12/09/2018 SERVICE: Pulmonary Medicine. INTERVAL HISTORY: The patient is doing really well from respiratory standpoint. He tolerated his procedure very well yesterday. He has no specific complaints of nausea or vomiting. He is currently resting comfortably. He has no complaints of shortness of breath. PHYSICAL EXAMINATION: VITAL SIGNS: Afebrile, pulse 89, blood pressure 87/51, respirations 21, and saturation 95% on room air. GENERAL: The patient is awake and alert, in no apparent distress. LUNGS: Decent air entry without any prolonged expiratory phase or wheezing present. HEART: Normal rate. Regular. ABDOMEN: Soft, nontender, and nondistended. Bowel sounds are positive. MUSCULOSKELETAL: No cyanosis or clubbing. There is no pitting in the bilateral lower extremities. NEUROLOGIC: Grossly nonfocal. LABORATORY AND DIAGNOSTIC DATA: WBC 8.9, hemoglobin 10.8, and platelets 90,000. INR 1.1. PH 7.42, pCO2 of 27, and pO2 of 177. Basic metabolic profile is otherwise unremarkable. Chloride 111 and sodium 137. Chest x-ray demonstrates median sternotomy wires are in place. There is a right subclavian central venous catheter terminates in beautiful position. There is a left chest tube and mediastinal drain, which are in place. I do not appreciate any pleural effusions or overt consolidating lesions in the bilateral lung wilkes. ASSESSMENT: 1. Acute ST-elevation myocardial infarction. 2. Coronary artery disease, status post coronary artery bypass graft x3 vessels. 3. Type 2 diabetes mellitus. DISCUSSION AND PLAN: The patient is doing beautifully in the postoperative period. He has already been weaned down to room air. We will begin our mobilization efforts through time. Hopefully, he will transition out of the ICU today or tomorrow. I will continue to follow in this location, but when he leaves the ICU, I will sign off. Please call with additional questions or concerns through time. Job ID: [id number]
[2018-12-09] MEDS: Atorvastatin Calcium 40 MG TAB PO SCH (20:25)
[2018-12-09] MEDS: Insulin Glargine 15 UNITS in Pre-Filled Syringe 1 EACH SC SCH (20:29)
[2018-12-10] MEDS: Ketorolac Tromethamine 30 MG/ML VIAL IVP SCH ×4 (06:07→23:50)
--- NOTE | 2018-12-10 07:49 | PDOC.HOSPP ---
- Subjective Encounter Date: 12/10/18 Encounter Time: 07:47 Subjective: Slept well, no acute overnight events. No new lab work, HD stable, plans for galvez discontinuation and tele transfer. Pain "tolerable" on current regimen. No nausea or vomiting. - Objective Vital Signs & Weight: Vital Signs (12 hours) Temp Pulse Resp Pulse Ox 12/10/18 04:00 98.9 F 12/10/18 00:00 99.0 F 12/09/18 23:16 95 16 94 L 12/09/18 20:00 99.3 F Weight Admit Weight 155 lb Weight 160 lb 11.472 oz Most Recent Monitor Data Heart Rate from ECG 96 NIBP 107/65 NIBP BP-Mean 79 Respiration from ECG 22 SpO2 96 I&O: 12/09/18 12/10/18 12/11/18 06:59 06:59 06:59 Intake Total 2131.9 1863.9 Output Total 2105 1300 Balance 26.9 563.9 Result Diagrams: 12/09/18 03:45 12/09/18 03:45 Additional Labs: Accuchecks 12/10/18 12/09/18 12/09/18 06:03 20:25 16:55 POC Glucose 124 H 213 H 207 H 12/09/18 10:40 POC Glucose 156 H ROS - Medication Medications: Active Medications Generic Name Dose Route Start Last Admin Trade Name Freq PRN Reason Stop Dose Admin Albuterol/Ipratropium 3 ml 12/08/18 19:00 12/09/18 23:16 Duoneb NEB 3 ml [id number] VENKAT Administration Aspirin 325 mg 12/09/18 09:00 12/09/18 09:03 Aspirin PO 325 mg DAILY VENKAT Administration Atorvastatin Calcium 40 mg 12/09/18 21:00 12/09/18 20:25 Lipitor PO 40 mg HS VENKAT Administration Famotidine 20 mg 12/08/18 21:00 12/09/18 20:25 Pepcid SLOW IVP 20 mg Q12HR VENKAT Administration Fentanyl 25 mcg 12/08/18 16:45 12/09/18 03:57 Sublimaze SLOW IVP 12/10/18 16:26 25 mcg Q2H PRN Administration Moderate Pain (4-6) Magnesium Sulfate 2 gm/ Device 50 mls @ 50 mls/hr 12/09/18 09:00 12/09/18 09: 04 IVPB 12/10/18 09:59 50 mls QAM VENKAT Administration Potassium Chloride 20 meq/ 100 mls @ 50 mls/hr 12/08/18 17:09 12/09/18 00:13 Device IVPB 100 mls PRN PRN Administration K </= 4.0 Insulin Glargine 15 units/ 0.15 mls @ 0 mls/hr 12/09/18 21:00 12/09/18 20:29 Miscellaneous Medication SC 0.15 mls HS VENKAT Administration Insulin Human Lispro 0 units 12/09/18 07:17 12/09/18 20:23 Humalog SC 3 unit .MILD SLIDING SCALE PRN Administration Mild Correctional Scale Ketorolac Tromethamine 30 mg 12/08/18 18:00 12/10/18 06:07 Toradol IVP 12/11/18 18:01 30 mg Q6HR VENKAT Administration Ondansetron HCl 4 mg 12/08/18 16:45 12/09/18 05:17 Zofran IVP 4 mg Q6H PRN Administration Nausea/Vomiting Sodium Chloride 10 ml 12/08/18 21:00 12/09/18 20:33 Flush - Normal Saline IVF 10 ml Q12HR VENKAT Administration - Exam NAD Eye: PERRL ENT: moist mucosa Neck: supple, no lymphadenopathy Heart: RRR Respiratory: CTAB Respiratory - other findings: Decreased bs bases Gastrointestinal: soft, non-tender, non-distended Neurological: no focal deficits Psychiatric: normal affect, A&O x 3 Hosp A/P (1) CAD (coronary artery disease) Code(s): I25.10 - ATHSCL HEART DISEASE OF [place] CORONARY ARTERY W/O ANG PCTRS Status: Acute (2) Diabetes mellitus Code(s): E11.9 - TYPE 2 DIABETES MELLITUS WITHOUT COMPLICATIONS Status: Acute (3) S/P CABG (coronary artery bypass graft) Code(s): Z95.1 - PRESENCE OF AORTOCORONARY BYPASS GRAFT Status: Acute (4) Postoperative anemia due to acute blood loss Code(s): D62 - ACUTE POSTHEMORRHAGIC ANEMIA Status: Acute (5) Tobacco dependence Code(s): F17.200 - NICOTINE DEPENDENCE, UNSPECIFIED, UNCOMPLICATED Status: Acute - Plan plan discussed w/ family, incentive spirometry, out of bed/ambulate, dc galvez 1. Cards - POD #2 s/p CABG; ASA/statin, beta marj as able. Ambulate/OOB/ mobilize 2. Endo - DM on insulin at home - 15u long acting ordered qhs/ss noted. At home , on metformin as well, restart at low dose. 3. Tobacco cessation Generally doing well with postop recovery; to tele today as per [facility].
--- NOTE | 2018-12-10 08:27 | RAD ---
PORTABLE AP CHEST X-RAY: HISTORY: Post open heart surgery. COMPARISON: 12/09/2018 FINDINGS: The left-sided thoracostomy tube, mediastinal drains, and right subclavian central venous catheter re main in place and unchanged in position. Post surgical changes related to CABG are again noted. The cardiac silhouette is magnified by projection. There is mild atelectasis present at the left lung b ase. The lungs otherwise appear clear. No pneumothorax is seen. There is a questionable tiny left pleural effusion present. No other interval change. IMPRESSION: 1. Stable postoperative changes related to coronary artery bypass grafting, with lines and tubes unc hanged in position. 2. Mild atelectasis, left lung base, with question of tiny left pleural effusion. POS: [facility]
[2018-12-10] MEDS: Magnesium 2 GM/50 ML 2 GM in Premix Bag 1 BAG IVPB SCH (09:05)
[2018-12-10] MEDS: Aspirin 325 MG TAB PO SCH (09:06)
[2018-12-10] MEDS: Famotidine/PF 20 mg/2ml Vial SLOW IVP SCH (09:06)
[2018-12-10] MEDS: metFORMIN 500 MG TAB PO SCH ×2 (09:06→17:05)
[2018-12-10] MEDS ORDERED: Bisacodyl 10 MG SUPP PR PRN (11:01)
[2018-12-10] MEDS ORDERED: Artificial Tears 18 DROP/0.9 ML EA EYE PRN (11:01)
[2018-12-10] MEDS ORDERED: Guaifenesin DM 100-10/5 ML UDCUP PO PRN (11:01)
[2018-12-10] MEDS ORDERED: diphenhydrAMINE 25 MG CAP PO PRN (11:01)
[2018-12-10] MEDS ORDERED: Mag-Al 1200 mg/1200 mg/30 ML UDCUP PO PRN (11:01)
[2018-12-10] MEDS ORDERED: Zolpidem Tartrate 5 MG TAB PO PRN (11:01)
[2018-12-10] MEDS ORDERED: Nitroglycerin 0.4 MG TAB (25 Tab Bottle) SL PRN (11:01)
[2018-12-10] MEDS ORDERED: Bisacodyl 5 MG TAB PO PRN (11:01)
[2018-12-10] MEDS ORDERED: Mineral Oil ENEMA PR PRN (11:01)
[2018-12-10] MEDS: HumaLOG 300 UNITS/3 ML VIAL SC PRN ×2 (12:06→17:06)
--- NOTE | 2018-12-10 14:29 | PRG ---
DATE OF SERVICE: 12/10/2018 SERVICE: Pulmonary Medicine. INTERVAL HISTORY: The patient is breathing comfortably. He remains on room air. He denies having any chest pain. He has a little bit of cough, but not bringing up any phlegm. Otherwise, there has been no interval change to his condition. PHYSICAL EXAMINATION: VITAL SIGNS: Afebrile, pulse 94, blood pressure 141/77, respirations 17, and saturation 96% on room air. GENERAL: The patient is awake and alert, in no apparent distress. LUNGS: Very good air entry. No prolonged expiratory phase or wheezing is present. HEART: Normal rate, regular. ABDOMEN: Soft, nontender, and nondistended. Bowel sounds are positive. MUSCULOSKELETAL: No cyanosis or clubbing. There is trace pitting in bilateral lower extremities. NEUROLOGIC: Grossly nonfocal. LABORATORY DATA: WBC 8.9, hemoglobin 10.8, platelets 90,000 and gently downtrending. INR 1.1. IMAGING DATA: Chest x-ray demonstrates mediastinal and left-sided thoracostomy tubes are in place. Right subclavian central venous catheter is in good position. Cardiac silhouette is essentially normal. I do not see any obvious large effusions or infiltrates. ASSESSMENT: 1. Acute ST elevation myocardial infarction. 2. Coronary artery disease, status post coronary artery bypass graft x3 vessels. 3. Type 2 diabetes mellitus. DISCUSSION AND PLAN: The patient is doing wonderful at this point. I think it would be reasonable for us to transition him out of the ICU to the telemetry unit. When he arrives on the floor, he will have no further requirements for inpatient Pulmonary/Critical Care opinion, and I will sign off. Please call with additional questions or concerns through time. IV fluids will be interrupted as the patient's p.o. was adequate. Job ID: [id number]
[2018-12-10] MEDS: Famotidine 20 MG TAB PO SCH (21:28)
[2018-12-10] MEDS: Carvedilol 3.125 MG TAB PO SCH (21:30)
[2018-12-10] MEDS: Insulin Glargine 15 UNITS in Pre-Filled Syringe 1 EACH SC SCH (21:30)
[2018-12-10] MEDS: Atorvastatin Calcium 40 MG TAB PO SCH (21:30)
[2018-12-10] MEDS: HYDROcodone/Acetaminophen 5/325 mg Tablet PO PRN (21:32)
[2018-12-11] MEDS: Ketorolac Tromethamine 30 MG/ML VIAL IVP SCH ×3 (06:14→18:07)
[2018-12-11] MEDS ORDERED: Aspirin 325 mg Enteric Coated Tablet PO SCH (09:00)
[2018-12-11] MEDS: Carvedilol 3.125 MG TAB PO SCH ×2 (09:03→20:42)
[2018-12-11] MEDS: metFORMIN 500 MG TAB PO SCH ×2 (09:04→18:07)
[2018-12-11] MEDS: Aspirin 325 MG TAB PO SCH (09:04)
[2018-12-11] MEDS: Lisinopril 5 MG TAB PO SCH (09:04)
[2018-12-11] MEDS: Famotidine 20 MG TAB PO SCH ×2 (10:08→20:43)
[2018-12-11 11:06] VITALS: BMI 23.8
[2018-12-11] MEDS: HumaLOG 300 UNITS/3 ML VIAL SC PRN (13:55)
--- NOTE | 2018-12-11 19:00 | PDOC.HOSPP ---
- Subjective Encounter Date: 12/11/18 Encounter Time: 11:15 Subjective: Up/walking/doing well. Pain controlled. States at home uses Levemir 25u qhs; does not use short acting - Objective Vital Signs & Weight: Vital Signs (12 hours) Temp Pulse Pulse Pulse Resp BP BP 12/11/18 16:02 98.0 F 89 16 12/11/18 13:52 97 12 12/11/18 13:21 98.8 F 88 16 12/11/18 11:24 93 94 117/66 120/75 12/11/18 09:20 97 95 125/67 117/66 12/11/18 08:58 98.5 F 94 15 12/11/18 08:00 BP BP Pulse Ox Pulse Ox Pulse Ox 12/11/18 16:02 115/74 94 L 12/11/18 13:52 12/11/18 13:21 126/74 97 12/11/18 11:24 97 96 12/11/18 09:20 98 96 12/11/18 08:58 107/61 96 12/11/18 08:00 96 Weight Admit Weight 155 lb 13.869 oz Weight 152 lb 3.2 oz Most Recent Monitor Data Heart Rate from ECG 99 NIBP 121/75 NIBP BP-Mean 90 Respiration from ECG 30 SpO2 97 I&O: 12/10/18 12/11/18 12/12/18 06:59 06:59 06:59 Intake Total 1863.9 676 Output Total 1300 70 Balance 563.9 606 Result Diagrams: 12/09/18 03:45 12/09/18 03:45 Additional Labs: Accuchecks 12/11/18 12/11/18 12/11/18 17:22 11:21 05:46 POC Glucose 105 299 H 211 H 12/10/18 20:42 POC Glucose 244 H ROS - Medication Medications: Active Medications Generic Name Dose Route Start Last Admin Trade Name Freq PRN Reason Stop Dose Admin Hydrocodone Bitart/Acetaminophen 2 tab 12/08/18 16:45 12/10/18 21:32 [place] 5/325 PO 2 tab Q4H PRN Administration Severe Pain (7-10) Albuterol/Ipratropium 3 ml 12/08/18 19:00 12/11/18 13:52 Duoneb NEB 3 ml [id number] VENKAT Administration Aspirin 325 mg 12/09/18 09:00 12/11/18 09:04 Aspirin PO 325 mg DAILY VENKAT Administration Atorvastatin Calcium 40 mg 12/09/18 21:00 12/10/18 21:30 Lipitor PO 40 mg HS VENKAT Administration Carvedilol 3.125 mg 12/10/18 21:00 12/11/18 09:03 Coreg PO 3.125 mg BID VENKAT Administration Famotidine 20 mg 12/10/18 21:00 12/11/18 10:08 Pepcid PO Not Given Q12HR VENKAT Potassium Chloride 20 meq/ 100 mls @ 50 mls/hr 12/08/18 17:09 12/09/18 00:13 Device IVPB 100 mls PRN PRN Administration K </= 4.0 Insulin Glargine 15 units/ 0.15 mls @ 0 mls/hr 12/09/18 21:00 12/10/18 21:30 Miscellaneous Medication SC 0.15 mls HS VENKAT Administration Insulin Human Lispro 0 units 12/09/18 07:17 12/11/18 13:55 Humalog SC 4 unit .MILD SLIDING SCALE PRN Administration Mild Correctional Scale Lisinopril 2.5 mg 12/11/18 09:00 12/11/18 09:04 Zestril PO 2.5 mg DAILY VENKAT Administration Metformin HCl 500 mg 12/10/18 08:00 12/11/18 18:07 Glucophage PO 500 mg BID-WM VENKAT Administration Ondansetron HCl 4 mg 12/08/18 16:45 12/09/18 05:17 Zofran IVP 4 mg Q6H PRN Administration Nausea/Vomiting Sodium Chloride 10 ml 12/08/18 21:00 12/11/18 09:05 Flush - Normal Saline IVF 10 ml Q12HR VENKAT Administration - Exam awake alert Eye: PERRL ENT: moist mucosa Neck: supple, no lymphadenopathy Heart: RRR Heart - other findings: Incision clean/dry/intact Respiratory: CTAB Gastrointestinal: soft, non-tender Extremities: no edema Neurological: no focal deficits Psychiatric: A&O x 3 Hosp A/P (1) CAD (coronary artery disease) Code(s): I25.10 - ATHSCL HEART DISEASE OF [place] CORONARY ARTERY W/O ANG PCTRS Status: Acute (2) Diabetes mellitus Code(s): E11.9 - TYPE 2 DIABETES MELLITUS WITHOUT COMPLICATIONS Status: Acute (3) S/P CABG (coronary artery bypass graft) Code(s): Z95.1 - PRESENCE OF AORTOCORONARY BYPASS GRAFT Status: Acute (4) Postoperative anemia due to acute blood loss Code(s): D62 - ACUTE POSTHEMORRHAGIC ANEMIA Status: Acute (5) Tobacco dependence Code(s): F17.200 - NICOTINE DEPENDENCE, UNSPECIFIED, UNCOMPLICATED Status: Acute - Plan plan discussed w/ family, incentive spirometry, out of bed/ambulate, jenniffer galvez 1. Cards - POD #3 s/p CABG; ASA/statin, beta marj. Ambulate/OOB/mobilize 2. Endo - DM on insulin at home 25u; with diet his blood glucose has increased substantially, titrate insulin. At home, on metformin as well, restart at low dose. 3. Tobacco cessation Generally doing very well with postop recovery
[2018-12-11] MEDS: Atorvastatin Calcium 40 MG TAB PO SCH (20:42)
[2018-12-11] MEDS: HYDROcodone/Acetaminophen 5/325 mg Tablet PO PRN (20:43)
[2018-12-11] MEDS ORDERED: Insulin Glargine 25 UNITS in Pre-Filled Syringe 1 EACH SC SCH (21:00)
[2018-12-12] MEDS: Ondansetron PF 4 MG/2 ML Vial IVP PRN (03:51)
[2018-12-12] MEDS: Aspirin 325 MG TAB PO SCH (09:03)
[2018-12-12] MEDS: Carvedilol 3.125 MG TAB PO SCH (09:04)
[2018-12-12] MEDS: Famotidine 20 MG TAB PO SCH (09:04)
[2018-12-12] MEDS: Lisinopril 5 MG TAB PO SCH (09:04)
[2018-12-12] MEDS: metFORMIN 500 MG TAB PO SCH (09:05)
[2018-12-12 12:37] VITALS: BP 114/72; TEMP 98.2
--- NOTE | 2018-12-13 04:25 | DIS ---
DATE OF ADMISSION: 12/07/2018 DATE OF DISCHARGE: 12/12/2018 DISCHARGE DIAGNOSES: 1. Coronary artery disease. 2. Diabetes mellitus. 3. Hypertension. PROCEDURES PERFORMED: 1. Cardiac catheterization. 2. Coronary artery bypass grafting x3. 3. Left internal mammary artery to LAD. 4. Reverse saphenous vein to PDA. 5. Reverse saphenous vein to obtuse marginal. DESCRIPTION OF HOSPITAL STAY: Mr. Hebert presented through the emergency department with chest pain. He was appropriately evaluated and underwent cardiac catheterization by Dr. Segoiva. He was subsequently referred for coronary artery bypass grafting. He has done well postoperatively. He has had no rhythm disturbances. At the time of discharge, he is ambulatory, tolerating a regular diet, having good bowel and bladder function. Incisions are clean and dry without any evidence of infection. DISCHARGE MEDICATIONS: Include: 1. Aspirin 325 mg daily. 2. Lipitor 40 mg at bedtime. 3. Coreg 3.125 mg b.i.d. 4. Lisinopril 2.5 mg daily. 5. Metformin 500 mg b.i.d. 6. Lantus 30 units at bedtime. 7. Proscar 5 mg at bedtime. 8. Flomax 0.4 mg daily. FOLLOWUP: Follow up is with me in 2 weeks. Job ID: [id number]
== END 2018-12-12 13:55 | disposition home or self-care (01) | DRG 234 ==
LOC: ERS 09:00 → CCU 10:07 → 2NO 12-10 10:43
PROVIDERS: ADMIT Internal Medicine Cardiovascular Disease; ATTEND Internal Medicine Cardiovascular Disease
PROC: 4A023N7 Measurement of Cardiac Sampling and Pressure, Left Heart, Percutaneous Approach (ICD-10-PCS; 2018-12-07)
PROC: B2111ZZ Fluoroscopy of Multiple Coronary Arteries using Low Osmolar Contrast (ICD-10-PCS; 2018-12-07)
PROC: B2151ZZ Fluoroscopy of Left Heart using Low Osmolar Contrast (ICD-10-PCS; 2018-12-07)
PROC: 02100Z9 Bypass Coronary Artery, One Artery from Left Internal Mammary, Open Approach (ICD-10-PCS; principal; 2018-12-08)
PROC: 021109W Bypass Coronary Artery, Two Arteries from Aorta with Autologous Venous Tissue, Open Approach (ICD-10-PCS; 2018-12-08)
PROC: 06BQ4ZZ Excision of Left Saphenous Vein, Percutaneous Endoscopic Approach (ICD-10-PCS; 2018-12-08)
PROC: 5A1221Z Performance of Cardiac Output, Continuous (ICD-10-PCS; 2018-12-08)
DX: I21.4 Non-ST elevation (NSTEMI) myocardial infarction (principal); D62 Acute posthemorrhagic anemia; E87.1 Hypo-osmolality and hyponatremia; I25.10 Atherosclerotic heart disease of native coronary artery without angina pectoris; E11.9 Type 2 diabetes mellitus without complications; I10 Essential (primary) hypertension; F17.210 Nicotine dependence, cigarettes, uncomplicated; E78.00 Pure hypercholesterolemia, unspecified; Z79.4 Long term (current) use of insulin
CPT/HCPCS: 36415; 36416; 36430; 71045; 80048; 80061; 82553; 82805; 83036; 84484; 85025; 85347; 85610; 85730; 86850; 86900; 86901; 93005; 93010; 93458; 93798; 94002; 94150; 94640; 96374; 99152; 99153; C1769; C1887; J0670; J0690; J1100; J1644; J1815; J1885; J2001; J2150; J2250; J2370; J2405; J2440; J2704; J2720; J3010; J3370; J3475; J3480; J3490; J7050; J7620; P9045; Q9967; S0017; S0028

== ENCOUNTER 2018-12-20 10:09 | Emergency (ER) | payer SELFPAY ==
[2018-12-20 10:39] LABS: #Eosinphils 0.4 thou/uL (0.0-0.7); #Lymphocytes 1.2 thou/uL (1.20-3.40); #Monocytes 0.5 thou/uL (0.11-0.59); %Basophils 0.3 % (0.0-1.0); %Eosinophils 4.7 % (0.0-10.0); %Lymphocytes 13.2 % (21.0-51.0); %Monocytes 5.3 % (0.0-10.0); %Neutrophils 76.4 % (42.0-75.0); Hemoglobin 11.3 g/dL (14.0-18.0); Mean Corpuscular Hemoglobin 32.1 pg (27.0-31.0); Mean Corpuscular Volume 94.3 fL (78.0-98.0); Mean Platelet Volume 7.4 fL (7.4-10.4); Platelet Count 376 thou/uL (130-400); RBC Distribution Width 12.2 % (11.5-14.5); Red Blood Cell (RBC) Count 3.51 mill/uL (4.70-6.10); White Blood Cell (WBC) Count 9.1 thou/uL (4.8-10.8)
--- NOTE | 2018-12-20 10:55 | RAD ---
Portable chest radiograph: 12/20/2018 COMPARISON: 12/10/2018 HISTORY: Chest pain FINDINGS: Mild linear density in the left lung base with mild blunting of the left costophrenic angle noted. Midline sternotomy wires are present. There is mild increased linear interstitial density within both lungs. There is no pneumothorax, lobar consolidation, or alveolar edema. IMPRESSION: Mild linear density in the left base with blunting of left costophrenic angle may signify scar or postoperative change. No focal consolidation or alveolar edema.
[2018-12-20 11:00] LABS: ALT (SGPT) 23 U/L (8-55); AST (SGOT) 21 U/L (5-34); Albumin 3.5 g/dL (3.5-5.0); Alkaline Phosphatase 112 U/L (40-150); Anion Gap 12 mmol/L (10-20); BUN (Urea Nitrogen) 21 mg/dL (8.9-20.6); Bilirubin, Total 0.3 mg/dL (0.2-1.2); CK (CPK) 58 U/L (30-200); Calc. Creatinine Clearance 0 mL/min (70-130); Carbon Dioxide 27 mmol/L (22-29); Chloride 98 mmol/L (98-107); Estimated GFR-MDRD 80; Glucose 287 mg/dL (70-105); Protein, Total 6.5 g/dL (6.0-8.3); Sodium 132 mmol/L (136-145)
--- NOTE | 2018-12-20 11:51 | CT ---
Exam: CT angiogram chest with 3-D rendering: HISTORY: Chest pain Recent coronary artery bypass grafting surgery FINDINGS: Bilateral pleural effusions somewhat larger on the right side with some pleural-based parenchymal robert nges bilaterally. Evidence for bilateral vascular congestion. Evidence for some minimal mediastinal blood and congestion from prior recent surgery. Trace pericardial fluid. Several minimally enlarged l ymph nodes in the superior left mediastinum up to 1.0 cm in short axis. There is no convincing evidence for acute pulmonary embolism. IMPRESSION: No convincing evidence for acute pulmonary embolism. Postoperative coronary bypass changes. Small bilateral pleural effusions and pulmonary parenchymal changes. Other findings as above.
[2018-12-20] MEDS ORDERED: ISOVUE-370 76%-LOCM 1 ML ONE (12:57)
== END 2018-12-20 13:05 | disposition home or self-care (01) ==
LOC: ERS 10:09
DX: R07.89 Other chest pain (principal); E78.5 Hyperlipidemia, unspecified; E78.00 Pure hypercholesterolemia, unspecified; I10 Essential (primary) hypertension; N40.0 Benign prostatic hyperplasia without lower urinary tract symptoms; E11.9 Type 2 diabetes mellitus without complications; F32.9 Major depressive disorder, single episode, unspecified; Z87.891 Personal history of nicotine dependence; Z79.4 Long term (current) use of insulin; Z79.899 Other long term (current) drug therapy
CPT/HCPCS: 71045; 71275; 80053; 82550; 84484; 85025; 93005; Q9966

== ENCOUNTER 2021-04-03 12:46 | Inpatient (IN) | payer SELFPAY ==
[2021-04-03] MEDS ORDERED: Fentanyl 100 MCG/2 ML VIAL ONE (12:54)
[2021-04-03 13:44] LABS: #Eosinphils 0.2 thou/uL (0.0-0.7); #Lymphocytes 1.2 thou/uL (1.20-3.40); #Monocytes 0.3 thou/uL (0.11-0.59); #Neutrophils 5.1 thou/uL (1.40-6.50); %Basophils 0.1 % (0.0-1.0); %Eosinophils 3.5 % (0.0-10.0); %Lymphocytes 17.2 % (21.0-51.0); %Monocytes 3.7 % (0.0-10.0); %Neutrophils 75.5 % (42.0-75.0); Hemoglobin 13.1 g/dL (14.0-18.0); Mean Corpuscular HGB CONC 33.8 g/dL (32.0-36.0); Mean Corpuscular Hemoglobin 31.7 pg (27.0-31.0); Mean Platelet Volume 9.3 fL (7.4-10.4); Platelet Count 147 thou/uL (130-400); RBC Distribution Width 11.9 % (11.5-14.5); Red Blood Cell (RBC) Count 4.13 mill/uL (4.70-6.10); White Blood Cell (WBC) Count 6.7 thou/uL (4.8-10.8)
[2021-04-03 14:00] LABS: ALT (SGPT) 39 U/L (8-55); AST (SGOT) 40 U/L (5-34); Albumin 3.5 g/dL (3.5-5.0); Alkaline Phosphatase 133 U/L (40-110); Anion Gap 12 mmol/L (10-20); BUN (Urea Nitrogen) 11 mg/dL (8.9-20.6); Calc. Creatinine Clearance 0 mL/min (70-130); Calcium 8.2 mg/dL (7.8-10.44); Carbon Dioxide 26 mmol/L (22-29); Chloride 98 mmol/L (98-107); Glucose 512 mg/dL (70-105); Potassium 4.5 mmol/L (3.5-5.1); Protein, Total 6.5 g/dL (6.0-8.3); Sodium 131 mmol/L (136-145)
[2021-04-03] MEDS ORDERED: Morphine 4 MG/ML VIAL ONE ×2 (14:18→15:52)
[2021-04-03] MEDS ORDERED: Dextrose 50% Abboject 50 ML SYRINGE SLOW IVP PRN (15:36)
[2021-04-03] MEDS ORDERED: Ondansetron ODT 4 MG TAB PO PRN (15:36)
[2021-04-03] MEDS ORDERED: Dextrose 5% in Water 1,000 ML IV PRN (15:36)
[2021-04-03] MEDS ORDERED: Ondansetron PF 4 MG/2 ML Vial IVP PRN (15:36)
[2021-04-03] MEDS ORDERED: hydrALAZINE 20 MG/ML VIAL SLOW IVP PRN (15:36)
[2021-04-03] MEDS ORDERED: HumaLOG 300 UNITS/3 ML VIAL SC PRN (15:36)
[2021-04-03] MEDS ORDERED: Morphine 4 MG/ML VIAL SLOW IVP PRN ×2 (15:36→16:15)
[2021-04-03] MEDS ORDERED: traMADol HCl 50 MG TAB PO PRN ×2 (15:36)
[2021-04-03 16:25] LABS: Hemoglobin A1c Greater than 14.0 % (4.0-6.0)
[2021-04-03] MEDS: Sodium Chloride 0.9% 1,000 ML IV SCH ×2 (16:52→23:39)
[2021-04-03] MEDS: HumaLOG 300 UNITS/3 ML VIAL SC PRN (16:53)
[2021-04-03] MEDS: Cyclobenzaprine 10 MG TAB PO PRN (16:54)
[2021-04-03 17:15] LABS: SARS-CoV-2 NAA Rapid Test Not Detected (NotDetected)
[2021-04-03] MEDS: Acetaminophen 500 MG TAB PO SCH ×2 (18:15→23:39)
[2021-04-03] MEDS ORDERED: FLU VACC QS2021-22(6MOS UP)/PF 60 MCG/0.5 ML SYRINGE IM ONE (19:00)
[2021-04-03 19:29] VITALS: BMI 22.6
[2021-04-03] MEDS: Ibuprofen 800 MG TAB PO SCH (20:17)
[2021-04-03] MEDS: Famotidine 20 MG TAB PO SCH (20:17)
[2021-04-04] MEDS ORDERED: ceFAZolin Sodium/D5W 2 GM in Premix Bag 1 BAG IVPB SCH (00:01)
[2021-04-04] MEDS: HumaLOG 300 UNITS/3 ML VIAL SC PRN ×3 (05:46→22:03)
[2021-04-04] MEDS: Acetaminophen 500 MG TAB PO SCH ×4 (05:47→20:17)
[2021-04-04] MEDS: Ibuprofen 800 MG TAB PO SCH ×3 (05:47→21:53)
[2021-04-04 05:54] LABS: #Eosinphils 0.2 thou/uL (0.0-0.7); #Lymphocytes 1.5 thou/uL (1.20-3.40); #Monocytes 0.4 thou/uL (0.11-0.59); #Neutrophils 3.6 thou/uL (1.40-6.50); %Basophils 0.7 % (0.0-1.0); %Eosinophils 3.3 % (0.0-10.0); %Lymphocytes 26.4 % (21.0-51.0); %Monocytes 7.1 % (0.0-10.0); %Neutrophils 62.5 % (42.0-75.0); Hemoglobin 10.1 g/dL (14.0-18.0); Mean Corpuscular HGB CONC 33.4 g/dL (32.0-36.0); Mean Corpuscular Hemoglobin 32.3 pg (27.0-31.0); Mean Corpuscular Volume 96.7 fL (78.0-98.0); Platelet Count 124 thou/uL (130-400); RBC Distribution Width 12.1 % (11.5-14.5); Red Blood Cell (RBC) Count 3.12 mill/uL (4.70-6.10); White Blood Cell (WBC) Count 5.7 thou/uL (4.8-10.8)
[2021-04-04 06:19] LABS: Anion Gap 10 mmol/L (10-20); BUN (Urea Nitrogen) 13 mg/dL (8.9-20.6); Calc. Creatinine Clearance 78 mL/min (70-130); Calcium 8.1 mg/dL (7.8-10.44); Carbon Dioxide 24 mmol/L (22-29); Chloride 103 mmol/L (98-107); Glucose 397 mg/dL (70-105); Phosphorus 3.3 mg/dL (2.3-4.7); Potassium 3.8 mmol/L (3.5-5.1); Sodium 133 mmol/L (136-145)
[2021-04-04] MEDS: Polyethylene Glycol 3350 17 GM Packet PO SCH (09:36)
[2021-04-04] MEDS: Famotidine 20 MG TAB PO SCH ×2 (09:36→21:52)
[2021-04-04] MEDS: Senokot S 8.6-50 MG TAB PO SCH ×2 (09:36→21:52)
[2021-04-04] MEDS ORDERED: ceFAZolin 2 GM/DEX 5% 100 ML BAG ONE (12:13)
[2021-04-04] MEDS ORDERED: Insulin Regular 300 UNITS/3 ML VIAL ONE (12:49)
[2021-04-04] MEDS ORDERED: Fentanyl 250 MCG/5 ML VIAL ONE (13:31)
[2021-04-04] MEDS ORDERED: Lidocaine 1% PF 5 ML VIAL ONE (13:59)
[2021-04-04] MEDS ORDERED: Phenylephrine 10 MG/ML VIAL ONE (13:59)
[2021-04-04] MEDS ORDERED: Rocuronium Bromide 10 MG/ML (10ML VIAL) ONE ×2 (13:59)
[2021-04-04] MEDS ORDERED: Dexamethasone 20 MG/5 ML VIAL ONE (13:59)
[2021-04-04] MEDS ORDERED: Ondansetron PF 4 MG/2 ML Vial ONE (13:59)
[2021-04-04] MEDS ORDERED: PROPOFOL 200 MG/20 ML VIAL ONE (13:59)
[2021-04-04] MEDS ORDERED: Glycopyrrolate 0.2 MG/ML 5 ML SYRINGE ONE (13:59)
[2021-04-04] MEDS ORDERED: Albumin 5% 500 ML ONE (15:22)
[2021-04-04] MEDS ORDERED: Ondansetron HCl/PF 4 MG/2 ML Vial IVP PRN (16:06)
[2021-04-04] MEDS ORDERED: Promethazine HCl 25 MG/ML VIAL IVPB PRN (16:06)
[2021-04-04] MEDS ORDERED: Morphine Sulfate 2 MG/ML SYRINGE SLOW IVP PRN (16:06)
[2021-04-04] MEDS ORDERED: Promethazine HCl 25 MG/ML VIAL IM PRN (16:06)
[2021-04-04 16:36] LABS: #Eosinphils 0.1 thou/uL (0.0-0.7); #Lymphocytes 0.7 thou/uL (1.20-3.40); #Monocytes 0.2 thou/uL (0.11-0.59); #Neutrophils 4.9 thou/uL (1.40-6.50); %Basophils 0.5 % (0.0-1.0); %Lymphocytes 11.2 % (21.0-51.0); %Monocytes 3.7 % (0.0-10.0); %Neutrophils 82.6 % (42.0-75.0); Hemoglobin 8.6 g/dL (14.0-18.0); Mean Corpuscular HGB CONC 33.8 g/dL (32.0-36.0); Mean Corpuscular Hemoglobin 32.2 pg (27.0-31.0); Mean Corpuscular Volume 95.5 fL (78.0-98.0); Mean Platelet Volume 8.7 fL (7.4-10.4); Platelet Count 111 thou/uL (130-400); RBC Distribution Width 12.1 % (11.5-14.5); Red Blood Cell (RBC) Count 2.68 mill/uL (4.70-6.10)
[2021-04-04] MEDS: Atorvastatin Calcium 40 MG TAB PO SCH (21:52)
[2021-04-04] MEDS: ceFAZolin Sodium/D5W 2 GM in Premix Bag 1 BAG IVPB SCH (21:56)
[2021-04-05] MEDS: Acetaminophen 500 MG TAB PO SCH ×5 (00:39→20:53)
[2021-04-05] MEDS: ceFAZolin Sodium/D5W 2 GM in Premix Bag 1 BAG IVPB SCH ×2 (05:34→15:53)
[2021-04-05] MEDS: Ibuprofen 800 MG TAB PO SCH ×3 (05:35→20:52)
[2021-04-05] MEDS: HumaLOG 300 UNITS/3 ML VIAL SC PRN ×3 (05:52→22:01)
[2021-04-05 07:03] LABS: #Monocytes 0.3 thou/uL (0.11-0.59); #Neutrophils 5.5 thou/uL (1.40-6.50); %Eosinophils 0.3 % (0.0-10.0); %Monocytes 4.5 % (0.0-10.0); %Neutrophils 81.3 % (42.0-75.0); Hemoglobin 7.8 g/dL (14.0-18.0); Mean Corpuscular HGB CONC 34.3 g/dL (32.0-36.0); Mean Corpuscular Hemoglobin 32.2 pg (27.0-31.0); Mean Platelet Volume 9.4 fL (7.4-10.4); Platelet Count 71 thou/uL (130-400); Red Blood Cell (RBC) Count 2.43 mill/uL (4.70-6.10); White Blood Cell (WBC) Count 6.8 thou/uL (4.8-10.8)
[2021-04-05 07:08] LABS: Anion Gap 15 mmol/L (10-20); BUN (Urea Nitrogen) 14 mg/dL (8.9-20.6); Calc. Creatinine Clearance 80 mL/min (70-130); Calcium 8.1 mg/dL (7.8-10.44); Carbon Dioxide 19 mmol/L (22-29); Cardiac Risk 2.7 (Less than 4.5); Chloride 101 mmol/L (98-107); Cholesterol 85 mg/dl (< 200 Desired); Glucose 390 mg/dL (70-105); HDL Cholesterol 32 mg/dL (>60 Neg Risk); LDL Cholesterol, Calculated 38 mg/dL; Magnesium 1.8 mg/dL (1.6-2.6); Phosphorus 3.2 mg/dL (2.3-4.7); Potassium 4.1 mmol/L (3.5-5.1); Sodium 131 mmol/L (136-145); Triglycerides 73 mg/dL (Less than 150)
[2021-04-05] MEDS ORDERED: PHOS-NAK 1 PKT PACK PO SCH (08:00)
[2021-04-05] MEDS ORDERED: Magnesium 2 GM/50 ML 2 GM in Premix Bag 1 BAG IVPB SCH (08:00)
[2021-04-05] MEDS: Senokot S 8.6-50 MG TAB PO SCH ×2 (09:27→20:51)
[2021-04-05] MEDS: Polyethylene Glycol 3350 17 GM Packet PO SCH (09:28)
[2021-04-05] MEDS: Famotidine 20 MG TAB PO SCH ×2 (09:28→20:52)
[2021-04-05] MEDS ORDERED: Lantus 1000 UNITS/10 ML VIAL SC SCH (11:15)
[2021-04-05] MEDS: Cyclobenzaprine 10 MG TAB PO PRN ×2 (12:51→20:51)
[2021-04-05] MEDS: Ferrous Sulfate 325 MG TAB PO SCH (15:53)
[2021-04-05] MEDS: Finasteride 5 MG TAB PO SCH (20:52)
[2021-04-05] MEDS: Atorvastatin Calcium 40 MG TAB PO SCH (20:52)
[2021-04-05] MEDS ORDERED: Ascorbic Acid 500 mg Chewable Tablet PO SCH (21:00)
[2021-04-05] MEDS: Lantus 1000 UNITS/10 ML VIAL SC SCH (22:00)
[2021-04-06] MEDS: Ibuprofen 800 MG TAB PO SCH ×3 (06:10→20:24)
[2021-04-06] MEDS: Acetaminophen 500 MG TAB PO SCH ×4 (06:10→23:59)
[2021-04-06 07:15] LABS: #Eosinphils 0.2 thou/uL (0.0-0.7); #Lymphocytes 1.2 thou/uL (1.20-3.40); #Monocytes 0.4 thou/uL (0.11-0.59); #Neutrophils 3.8 thou/uL (1.40-6.50); %Eosinophils 4.2 % (0.0-10.0); %Lymphocytes 21.6 % (21.0-51.0); %Monocytes 7.4 % (0.0-10.0); %Neutrophils 66.8 % (42.0-75.0); Hemoglobin 8.4 g/dL (14.0-18.0); Mean Corpuscular HGB CONC 34.7 g/dL (32.0-36.0); Mean Corpuscular Hemoglobin 32.5 pg (27.0-31.0); Mean Corpuscular Volume 93.5 fL (78.0-98.0); Mean Platelet Volume 8.4 fL (7.4-10.4); Platelet Count 117 thou/uL (130-400); RBC Distribution Width 12.5 % (11.5-14.5); Red Blood Cell (RBC) Count 2.58 mill/uL (4.70-6.10); White Blood Cell (WBC) Count 5.6 thou/uL (4.8-10.8)
[2021-04-06 07:20] LABS: Anion Gap 8 mmol/L (10-20); BUN (Urea Nitrogen) 11 mg/dL (8.9-20.6); Calc. Creatinine Clearance 100 mL/min (70-130); Calcium 8.5 mg/dL (7.8-10.44); Carbon Dioxide 30 mmol/L (22-29); Chloride 103 mmol/L (98-107); Glucose 103 mg/dL (70-105); Magnesium 2.1 mg/dL (1.6-2.6); Potassium 3.6 mmol/L (3.5-5.1); Sodium 137 mmol/L (136-145)
[2021-04-06] MEDS ORDERED: Potassium Chloride 20 MEQ TAB PO SCH (08:00)
[2021-04-06] MEDS: FLUoxetine HCl 20 MG CAP PO SCH (09:52)
[2021-04-06] MEDS: Polyethylene Glycol 3350 17 GM Packet PO SCH (09:52)
[2021-04-06] MEDS: Tamsulosin HCl 0.4 MG CAP PO SCH (09:52)
[2021-04-06] MEDS: Enoxaparin Sodium 40 MG/0.4 ML SYRINGE SC SCH (09:52)
[2021-04-06] MEDS: Senokot S 8.6-50 MG TAB PO SCH ×2 (09:53→20:24)
[2021-04-06] MEDS: Ferrous Sulfate 325 MG TAB PO SCH ×2 (09:53→17:54)
[2021-04-06] MEDS: Gabapentin 100 MG CAP PO SCH (09:53)
[2021-04-06] MEDS: HumaLOG 300 UNITS/3 ML VIAL SC PRN ×2 (12:19→21:47)
[2021-04-06] MEDS: Ascorbic Acid 500 mg Chewable Tablet PO SCH (17:54)
[2021-04-06] MEDS: Cyclobenzaprine 10 MG TAB PO PRN (20:23)
[2021-04-06] MEDS: Atorvastatin Calcium 40 MG TAB PO SCH (20:24)
[2021-04-06] MEDS: Finasteride 5 MG TAB PO SCH (20:24)
[2021-04-06] MEDS: Lantus 1000 UNITS/10 ML VIAL SC SCH (21:47)
[2021-04-07] MEDS: Acetaminophen 500 MG TAB PO SCH ×3 (05:15→15:40)
[2021-04-07] MEDS: Ibuprofen 800 MG TAB PO SCH ×2 (05:16→15:39)
[2021-04-07] MEDS: HumaLOG 300 UNITS/3 ML VIAL SC PRN ×2 (05:17→15:38)
[2021-04-07 06:44] LABS: #Eosinphils 0.3 thou/uL (0.0-0.7); #Lymphocytes 1.2 thou/uL (1.20-3.40); #Monocytes 0.3 thou/uL (0.11-0.59); #Neutrophils 2.8 thou/uL (1.40-6.50); %Eosinophils 6.6 % (0.0-10.0); %Monocytes 6.3 % (0.0-10.0); %Neutrophils 61.2 % (42.0-75.0); Hemoglobin 7.8 g/dL (14.0-18.0); Mean Corpuscular HGB CONC 33.9 g/dL (32.0-36.0); Mean Corpuscular Hemoglobin 31.9 pg (27.0-31.0); Mean Corpuscular Volume 93.9 fL (78.0-98.0); Mean Platelet Volume 8.6 fL (7.4-10.4); Platelet Count 129 thou/uL (130-400); RBC Distribution Width 12.3 % (11.5-14.5); Red Blood Cell (RBC) Count 2.45 mill/uL (4.70-6.10); White Blood Cell (WBC) Count 4.6 thou/uL (4.8-10.8)
[2021-04-07 06:56] LABS: Anion Gap 8 mmol/L (10-20); BUN (Urea Nitrogen) 17 mg/dL (8.9-20.6); Calc. Creatinine Clearance 85 mL/min (70-130); Calcium 8.3 mg/dL (7.8-10.44); Carbon Dioxide 29 mmol/L (22-29); Chloride 104 mmol/L (98-107); Glucose 213 mg/dL (70-105); Potassium 3.5 mmol/L (3.5-5.1); Sodium 137 mmol/L (136-145)
[2021-04-07] MEDS ORDERED: Potassium Chloride 20 MEQ TAB PO SCH (07:30)
[2021-04-07] MEDS ORDERED: Aspirin 325 mg Enteric Coated Tablet PO SCH (09:00)
[2021-04-07] MEDS: Ascorbic Acid 500 mg Chewable Tablet PO SCH ×2 (09:42→15:38)
[2021-04-07] MEDS: Tamsulosin HCl 0.4 MG CAP PO SCH (09:42)
[2021-04-07] MEDS: Enoxaparin Sodium 40 MG/0.4 ML SYRINGE SC SCH (09:42)
[2021-04-07] MEDS: Ferrous Sulfate 325 MG TAB PO SCH ×2 (09:42→15:38)
[2021-04-07] MEDS: FLUoxetine HCl 20 MG CAP PO SCH (09:42)
[2021-04-07] MEDS: Senokot S 8.6-50 MG TAB PO SCH (09:42)
[2021-04-07] MEDS: Gabapentin 100 MG CAP PO SCH (09:43)
[2021-04-07] MEDS: Polyethylene Glycol 3350 17 GM Packet PO SCH (09:43)
[2021-04-07 11:52] VITALS: TEMP 98.4
[2021-04-07 12:43] LABS: Mean Corpuscular Hemoglobin 32.9 pg (27.0-31.0); Mean Corpuscular Volume 94.2 fL (78.0-98.0); Mean Platelet Volume 8.4 fL (7.4-10.4); Platelet Count 137 thou/uL (130-400); RBC Distribution Width 12.4 % (11.5-14.5); Red Blood Cell (RBC) Count 2.42 mill/uL (4.70-6.10); White Blood Cell (WBC) Count 5.1 thou/uL (4.8-10.8)
[2021-04-07 15:52] VITALS: BP 129/77
== END 2021-04-07 17:54 | disposition home or self-care (01) | DRG 481 ==
LOC: ERS 12:46 → SURG A 15:28
PROVIDERS: ADMIT Specialist; ATTEND Specialist
PROC: 0QS606Z Reposition Right Upper Femur with Intramedullary Internal Fixation Device, Open Approach (ICD-10-PCS; principal; 2021-04-04)
PROC: 30233N1 Transfusion of Nonautologous Red Blood Cells into Peripheral Vein, Percutaneous Approach (ICD-10-PCS; 2021-04-05)
DX: S72.21XA Displaced subtrochanteric fracture of right femur, initial encounter for closed fracture (principal); D62 Acute posthemorrhagic anemia; F32.0 Major depressive disorder, single episode, mild; Z20.822 Contact with and (suspected) exposure to COVID-19; E11.65 Type 2 diabetes mellitus with hyperglycemia; I25.10 Atherosclerotic heart disease of native coronary artery without angina pectoris; E78.5 Hyperlipidemia, unspecified; N40.0 Benign prostatic hyperplasia without lower urinary tract symptoms; S06.0X0A Concussion without loss of consciousness, initial encounter; E11.42 Type 2 diabetes mellitus with diabetic polyneuropathy; W11.XXXA Fall on and from ladder, initial encounter; K21.9 Gastro-esophageal reflux disease without esophagitis; Z95.1 Presence of aortocoronary bypass graft; Z79.899 Other long term (current) drug therapy; Z87.891 Personal history of nicotine dependence; Z79.82 Long term (current) use of aspirin; Z79.4 Long term (current) use of insulin
CPT/HCPCS: 27502; 36415; 36416; 36430; 70450; 71045; 72125; 72170; 76000; 80048; 80053; 80061; 83036; 83735; 84100; 85025; 86850; 86900; 86901; 93005; 93306; 94640; C1713; G0390; J1100; J1650; J1815; J2270; J2370; J2405; J2704; J3010; J3475; J7050; J7620; P9016; P9045; U0002

== ENCOUNTER 2023-11-05 12:52 | Emergency (ER) | payer SELFPAY ==
[2023-11-05] MEDS ORDERED: Meclizine HCl 25 MG TAB ONE (14:07)
[2023-11-05] MEDS ORDERED: Ondansetron ODT 4 MG TAB ONE (14:07)
[2023-11-05] MEDS ORDERED: Ondansetron PF 4 MG/2 ML Vial ONE (14:44)
[2023-11-05] MEDS ORDERED: Diazepam 10 MG/2 ML SYRINGE ONE (14:44)
[2023-11-05 15:11] LABS: #Basophils 0.04 10x3/uL (0.0-0.2); %Basophils 0.5 % (0.0-1.0); %Eosinophils 2.8 % (0.0-10.0); %Lymphocytes 19.7 % (21.0-51.0); %Monocytes 6.3 % (0.0-10.0); %Neutrophils 70.4 % (42.0-75.0); Hematocrit 41.3 % (42.0-52.0); Hemoglobin 14.7 g/dL (14.0-18.0); Mean Corpuscular HGB CONC 35.6 g/dL (32.0-36.0); Mean Corpuscular Hemoglobin 30.6 pg (27.0-31.0); Mean Platelet Volume 12.1 fL (7.4-10.4); Platelet Count 160 10x3/uL (130-400); RBC Distribution Width 12.5 % (11.5-14.5)
[2023-11-05 15:56] LABS: ALT (SGPT) 29 U/L (8-55); AST (SGOT) 24 U/L (5-34); Alkaline Phosphatase 136 U/L (40-110); Anion Gap 18 mmol/L (10-20); BUN (Urea Nitrogen) 23 mg/dL (8.4-25.7); Calc. Creatinine Clearance 0 mL/min (70-130); Calcium 9.4 mg/dL (7.8-10.44); Carbon Dioxide 27 mmol/L (22-29); Chloride 95 mmol/L (98-107); Estimated GFR 49; Globulin 3.6 g/dL (2.4-3.5); Glucose 403 mg/dL (70-105); Potassium 4.7 mmol/L (3.5-5.1); Protein, Total 7.6 g/dL (6.0-8.3); Sodium 135 mmol/L (136-145)
[2023-11-05 15:59] LABS: Troponin I Less than 0.010 ng/mL (< 0.028)
== END 2023-11-05 19:15 | disposition home or self-care (01) ==
LOC: ERS 12:52
DX: R42 Dizziness and giddiness (principal); R11.2 Nausea with vomiting, unspecified; I10 Essential (primary) hypertension; E11.9 Type 2 diabetes mellitus without complications; Z75.8 Other problems related to medical facilities and other health care
CPT/HCPCS: 36415; 70450; 80053; 84484; 85025; 93005; 96361; 96374; 96375; J2405; J3360; Q0162